=== PATIENT | female | born 1990 | race Caucasian/White ===

== ENCOUNTER → 2023-11-14 12:55 | Outpatient (REF) | payer OTHER, SELFPAY | LOC: HWRAD 12:55 | PROVIDERS: ATTENDING PHYSICIAN Obstetrics & Gynecology; FAMILY PHYSICIAN Internal Medicine | DX: Z34.80 Encounter for supervision of other normal pregnancy, unspecified trimester (principal) | CPT/HCPCS: 76801 ==

== ENCOUNTER → 2024-03-30 15:49 | Outpatient (REF) | payer OTHER, SELFPAY | LOC: RAD 15:49 | PROVIDERS: ATTENDING PHYSICIAN Nurse Practitioner Adult Health | DX: I83.891 Varicose veins of right lower extremity with other complications (principal); Z82.49 Family history of ischemic heart disease and other diseases of the circulatory system; R22.41 Localized swelling, mass and lump, right lower limb | CPT/HCPCS: 93971 ==

== ENCOUNTER → 2024-04-08 13:58 | Outpatient (REF) | payer OTHER, SELFPAY | LOC: RAD 13:58 | PROVIDERS: ATTENDING PHYSICIAN Internal Medicine Hematology & Oncology; FAMILY PHYSICIAN Internal Medicine | DX: O22.23 Superficial thrombophlebitis in pregnancy, third trimester (principal) | CPT/HCPCS: 93971 ==

== ENCOUNTER → 2024-04-20 13:50 | Outpatient (REF) | payer OTHER, SELFPAY | LOC: RAD 13:50 | PROVIDERS: ATTENDING PHYSICIAN Internal Medicine Hematology & Oncology; FAMILY PHYSICIAN Internal Medicine | DX: O22.23 Superficial thrombophlebitis in pregnancy, third trimester (principal) | CPT/HCPCS: 93971 ==

== ENCOUNTER → 2024-05-11 13:54 | Outpatient (REF) | payer OTHER, SELFPAY | LOC: RAD 13:54 | PROVIDERS: ATTENDING PHYSICIAN Internal Medicine Hematology & Oncology; FAMILY PHYSICIAN Internal Medicine | DX: O22.23 Superficial thrombophlebitis in pregnancy, third trimester (principal) | CPT/HCPCS: 93971 ==